=== PATIENT | male | born 1940 | race Caucasian/White ===

== ENCOUNTER 2016-11-12 23:30 | Inpatient (IN) | payer OTHER ==
[~2016-11-12] VITALS: Ht 175.3 cm; Wt 101.8 kg
[~2016-11-12 23:30] MED LIST: CRESTOR10 MG PO; CYANOCOBALAM1000 MCG PO; CYCLOBENZAPRINE10 M1 PO; DETROL LA4 MG PO; HYDROCODON-ACE1 EAC2 PO; K-DUR20 MEQ PO; LASIX40 MG PO; PROTONIX40 MG PO; ST. JOSEPH ASPI81 MG PO; ZOLOFT50 MG PO
[2016-11-13 00:43] LABS: EOSINOPHIL (%) 0 % (0-5); HEMATOCRIT 37.7 % (38.0-50.0); IMMATURE GRANULOCYTE (%) 0.8 % (0.0-0.7); INSTRUMENT ABS NEUTROPHIL CT 3.7 K/uL; LYMPHOCYTE COUNT 0.7 K/uL (1.0-2.8); MCH 30.4 PG (29.0-34.0); MCHC 34.5 G/DL (30.0-36.0); MCV 88.1 FL (86-99); MEAN PLAT.VOLUME 9.2 uM^3 (9.0-12.4); MONOCYTE (%) 10.2 % (3-12); MONOCYTE COUNT 0.5 K/uL (0-0.8); NEUTROPHIL (%) 75.3 % (45-76); NEUTROPHIL COUNT 3.7 K/uL (1.8-6.4); PLATELET COUNT 139 K/uL (156-360); RBC DIS.WIDTH-CV 13.3 % (11.8-14.6); RBC DIS.WIDTH-SD 42.8 % (39-53); RED BLOOD COUNT 4.28 M/uL (4.00-5.50); WHITE BLOOD COUNT 4.9 K/uL (4.1-10.2)
[2016-11-13 00:53] LABS: CHLORIDE 103 mEq/L (99-109); POTASSIUM 3.4 mEq/L (3.7-5.4)
[2016-11-13 00:54] LABS: GLUCOSE 138 mg/dL (70-99); SODIUM 135 mEq/L (136-147)
[2016-11-13 00:55] LABS: ANION GAP 9 MEQ/L (2-14)
[2016-11-13 00:58] LABS: GFR ESTIMATE (CALCULATED) > 59 mL/min/
[2016-11-13 00:59] LABS: UREA NITROGEN (BUN) 15 mg/dL (9-23)
[2016-11-13 02:26] LABS: TOTAL BILIRUBIN 1.5 mg/dL (0.0-1.0)
[2016-11-13 02:27] LABS: ALKALINE PHOSPHATASE 77 IU/L (3-129)
[2016-11-13 02:29] LABS: DIRECT BILIRUBIN 0.5 mg/dL (0.0-0.3)
[2016-11-13 02:30] LABS: LIPASE 12 U/L (1.0-51.0)
[2016-11-13 03:37] LABS: ADD MIUA? YES; BILIRUBIN NEGATIVE; BLOOD MODERATE; COLOR YELLOW ((YELLOW)); GLUCOSE (STRIP) NEGATIVE; KETONES NEGATIVE; LEUKOCYTES NEGATIVE; NITRITE NEGATIVE; PROTEIN (STRIP) 30; SPECIFIC GRAVITY 1.011 (1.000-1.030); UROBILINOGEN 0.2 MG/DL (0.2-1.0)
[2016-11-13 03:41] LABS: CREATINE KINASE 274 IU/L (1-294)
[2016-11-13 04:00] LABS: BACTERIA RARE /HPF; EPITHELIAL CELLS NONE SEEN /HPF; MUCUS TRACE /LPF; RED BLOOD CELLS 0-5 /HPF (0-5); UCUL ADDED? NO; WHITE BLOOD CELLS 0-5 /HPF (0-5)
[2016-11-13 04:04] LABS: INFLUENZA A VIRAL ANTIGEN NEGATIVE; INFLUENZA B VIRAL ANTIGEN NEGATIVE
[2016-11-13 04:25] LABS: TROP-I INTERPRETATION NEGATIVE; TROPONIN-I < 0.01 ng/mL (0.0-0.30)
[2016-11-13] MEDS ORDERED: VITAMIN D-32000 UNI2 PO (08:04)
[2016-11-13] MEDS ORDERED: GLUCOSA-CHOND-1 EACH PO (08:05)
[2016-11-13] MEDS ORDERED: PROSTATE HEALT1 EAC1 PO (08:06)
[2016-11-13] MEDS ORDERED: LOSARTAN POTAS100 MG PO (08:07)
[2016-11-13] MEDS ORDERED: DILTIAZEM 24HR240 MG PO (08:08)
[2016-11-13] MEDS ORDERED: MOBIC15 MG PO (08:09)
[2016-11-13 13:36] VITALS: BP 146/68
[2016-11-13 16:19] VITALS: BP 127/60
[2016-11-13 18:24] LABS: HEMATOCRIT 37.5 % (38.0-50.0); MCH 30.4 PG (29.0-34.0); MCHC 33.9 G/DL (30.0-36.0); MCV 89.7 FL (86-99); MEAN PLAT.VOLUME 9.2 uM^3 (9.0-12.4); PLATELET COUNT 107 K/uL (156-360); RBC DIS.WIDTH-CV 13.3 % (11.8-14.6); RED BLOOD COUNT 4.18 M/uL (4.00-5.50); WHITE BLOOD COUNT 4.9 K/uL (4.1-10.2)
[2016-11-13 18:46] LABS: ALKALINE PHOSPHATASE 72 IU/L (3-129); ANION GAP 8 MEQ/L (2-14); CHLORIDE 105 MEQ/L (99-109); GFR ESTIMATE (CALCULATED) > 59 mL/min/; GLUCOSE 155 mg/dL (70-99); POTASSIUM 3.4 MEQ/L (3.7-5.4); SAMPLE HEMOLYSIS CHECK 0; SAMPLE ICTERIC CHECK 0; SAMPLE LIPEMIA CHECK 0; SODIUM 139 MEQ/L (136-147); UREA NITROGEN (BUN) 12 mg/dL (9-23)
[2016-11-13 19:01] LABS: EOSINOPHIL (%) 0 % (0-5); IMMATURE GRANULOCYTE (%) 0.4 % (0.0-0.7); LYMPHOCYTE COUNT 0.6 K/uL (1.0-2.8); MONOCYTE (%) 5.2 % (3-12); MONOCYTE COUNT 0.3 K/uL (0-0.8); NEUTROPHIL (%) 81.8 % (45-76); PLAT.SUFFICIENCY DECREASED
[2016-11-13 19:19] VITALS: BP 139/67
[2016-11-13 23:21] VITALS: BP 108/60
[2016-11-14 03:05] VITALS: BP 133/65
[2016-11-14 05:50] LABS: MCHC 33.6 G/DL (30.0-36.0); MCV 89.3 FL (86-99); MEAN PLAT.VOLUME 9.4 uM^3 (9.0-12.4); PLATELET COUNT 104 K/uL (156-360); RBC DIS.WIDTH-CV 13.3 % (11.8-14.6); RBC DIS.WIDTH-SD 43.9 % (39-53); RED BLOOD COUNT 4.03 M/uL (4.00-5.50); WHITE BLOOD COUNT 3.3 K/uL (4.1-10.2)
[2016-11-14 06:13] LABS: ALKALINE PHOSPHATASE 86 IU/L (3-129); ANION GAP 8 MEQ/L (2-14); CHLORIDE 105 MEQ/L (99-109); GFR ESTIMATE (CALCULATED) > 59 mL/min/; GLUCOSE 126 mg/dL (70-99); POTASSIUM 3.2 MEQ/L (3.7-5.4); SAMPLE HEMOLYSIS CHECK 0; SAMPLE ICTERIC CHECK 0; SAMPLE LIPEMIA CHECK 0; SODIUM 137 MEQ/L (136-147); TOTAL BILIRUBIN 1.2 MG/DL (0.0-1.0); UREA NITROGEN (BUN) 12 mg/dL (9-23)
[2016-11-14 07:36] VITALS: BP 130/63
[2016-11-14 11:49] VITALS: BP 136/76
[2016-11-14 16:00] VITALS: BP 153/72
[2016-11-14 19:20] VITALS: BP 145/71
[2016-11-15 00:25] VITALS: BP 146/67
[2016-11-15 04:00] VITALS: BP 147/72
[2016-11-15 06:52] LABS: MCH 29.8 PG (29.0-34.0); MCHC 33.3 G/DL (30.0-36.0); MCV 89.3 FL (86-99); MEAN PLAT.VOLUME 9.9 uM^3 (9.0-12.4); PLATELET COUNT 124 K/uL (156-360); RBC DIS.WIDTH-CV 13.3 % (11.8-14.6); RBC DIS.WIDTH-SD 44.1 % (39-53); RED BLOOD COUNT 4.03 M/uL (4.00-5.50); WHITE BLOOD COUNT 3.1 K/uL (4.1-10.2)
[2016-11-15 07:19] LABS: ALKALINE PHOSPHATASE 92 IU/L (3-129); ANION GAP 6 MEQ/L (2-14); CHLORIDE 108 MEQ/L (99-109); GFR ESTIMATE (CALCULATED) > 59 mL/min/; GLUCOSE 119 mg/dL (70-99); SAMPLE HEMOLYSIS CHECK 0; SAMPLE ICTERIC CHECK 0; SAMPLE LIPEMIA CHECK 0; SODIUM 140 MEQ/L (136-147); UREA NITROGEN (BUN) 11 mg/dL (9-23)
[2016-11-15 07:22] LABS: TOTAL BILIRUBIN 0.6 MG/DL (0.0-1.0)
[2016-11-15 08:32] VITALS: BP 153/86
[2016-11-15 08:32] LABS: EOSINOPHIL (%) 2.3 % (0-5); EOSINOPHIL COUNT 0.1 K/uL (0-0.3); HEMATOLOGY COMMENT 1 SMEAR COMPATIBLE; IMMATURE GRANULOCYTE (%) 0.3 % (0.0-0.7); INSTRUMENT ABS NEUTROPHIL CT 1.7 K/uL; LYMPHOCYTE COUNT 0.9 K/uL (1.0-2.8); MONOCYTE (%) 13.9 % (3-12); MONOCYTE COUNT 0.4 K/uL (0-0.8); NEUTROPHIL (%) 54.4 % (45-76); NEUTROPHIL COUNT 1.7 K/uL (1.8-6.4)
[2016-11-15 11:39] VITALS: BP 151/82
[2016-11-15] MEDS ORDERED: KEFLEX500 MG PO (11:56)
== END 2016-11-15 13:13 | disposition home or self-care (01) | DRG 195 ==
LOC: EME 23:30 → EDOF 11-13 07:38 → 4EAST 11-13 12:55
PROVIDERS: Emergency Medicine; Hospitalist
DX: J18.9 Pneumonia, unspecified organism (principal); E86.0 Dehydration; R09.02 Hypoxemia; I10 Essential (primary) hypertension; E11.9 Type 2 diabetes mellitus without complications; E87.6 Hypokalemia; G47.33 Obstructive sleep apnea (adult) (pediatric); E78.5 Hyperlipidemia, unspecified; K59.00 Constipation, unspecified; N40.0 Benign prostatic hyperplasia without lower urinary tract symptoms; Z72.0 Tobacco use; Z68.31 Body mass index [BMI] 31.0-31.9, adult; I25.2 Old myocardial infarction; Z79.1 Long term (current) use of non-steroidal anti-inflammatories (NSAID); Z79.82 Long term (current) use of aspirin; Z79.899 Other long term (current) drug therapy
CPT/HCPCS: 71010; 71020; 74177; 80048; 80053; 80076; 81003; 82550; 83605; 83690; 84484; 85025; 85025 91; 85027; 87040; 87177; 87493; 87502; 87506; 93005; 94799; 99202; 99281; 99285; J0456; J0696; J1644; J2060; J3480; J7030; J7040; J7050

== ENCOUNTER 2017-07-29 17:59 | Emergency (ER) | payer OTHER ==
[~2017-07-29] VITALS: Ht 167.6 cm; Wt 93.0 kg
[~2017-07-29 17:59] MED LIST changes: +DILTIAZEM 24HR240 MG PO; +GLUCOSA-CHOND-1 EACH PO; +KEFLEX500 MG PO; +LOSARTAN POTAS100 MG PO; +MOBIC15 MG PO; +PROSTATE HEALT1 EAC1 PO; +VITAMIN D-32000 UNI2 PO
[2017-07-29 18:41] LABS: HEMATOCRIT 41.4 % (38.0-50.0); HEMOGLOBIN 14.6 G/DL (12.5-16.6); MCH 31.3 PG (29.0-34.0); MCHC 35.3 G/DL (30.0-36.0); MCV 88.8 FL (86-99); PLATELET COUNT 198 K/uL (156-360); RBC DIS.WIDTH-SD 42.7 % (39-53); RED BLOOD COUNT 4.66 M/uL (4.00-5.50); WHITE BLOOD COUNT 8.1 K/uL (4.1-10.2)
[2017-07-29 18:50] LABS: CHLORIDE 105 mEq/L (99-109); POTASSIUM 3.8 mEq/L (3.7-5.4); SODIUM 140 mEq/L (136-147)
[2017-07-29 18:52] LABS: GLUCOSE 114 mg/dL (70-99)
[2017-07-29 18:54] LABS: TOTAL BILIRUBIN 1.8 mg/dL (0.0-1.0)
[2017-07-29 18:55] LABS: ALKALINE PHOSPHATASE 94 IU/L (3-129)
[2017-07-29 18:56] LABS: CREATININE 0.9 mg/dL (0.6-1.3); GFR ESTIMATE (CALCULATED) > 59 mL/min/ (58.99-99999)
[2017-07-29 18:57] LABS: AST (GOT) 19 IU/L (2-34); UREA NITROGEN (BUN) 19 mg/dL (9-23)
[2017-07-29 18:59] LABS: ALT (GPT) 24 IU/L (3-49)
[2017-07-29] MEDS ORDERED: ZOFRAN4 MG PO (20:56)
[2017-07-29] MEDS ORDERED: TRAMADOL HCL50 MG PO (20:56)
[2017-07-29 21:17] LABS: APPEARANCE CLEAR ((CLEAR)); BILIRUBIN NEGATIVE; BLOOD NEGATIVE; COLOR YELLOW ((YELLOW)); GLUCOSE (STRIP) NEGATIVE; KETONES 5; LEUKOCYTES NEGATIVE; NITRITE NEGATIVE; PROTEIN (STRIP) NEGATIVE; SPECIFIC GRAVITY 1.029 (1.000-1.030); UCUL ADDED? NO; UROBILINOGEN 0.2 MG/DL (0.2-1.0)
[2017-07-29 21:39] VITALS: BP 146/83
== END 2017-07-29 21:40 | disposition home or self-care (01) ==
LOC: EME 17:59
PROVIDERS: Physician Assistant
DX: R11.2 Nausea with vomiting, unspecified (principal); R19.7 Diarrhea, unspecified; I10 Essential (primary) hypertension; I25.2 Old myocardial infarction; R73.03 Prediabetes; Z90.49 Acquired absence of other specified parts of digestive tract; Z79.82 Long term (current) use of aspirin; Z96.653 Presence of artificial knee joint, bilateral; Z87.891 Personal history of nicotine dependence
CPT/HCPCS: 74177; 80053; 81003; 85027; 99281; 99285; J2405; J7030